=== PATIENT | female | born 1960 | race Caucasian/White ===

== ENCOUNTER 2017-05-31 08:27 | Emergency (ER) | payer SELFPAY ==
--- NOTE | 2017-05-31 11:20 | RAD ---
AP VIEW CHEST: Date: 05/31/17 HISTORY: Cough. FINDINGS: AP view of chest obtained. The lungs are well aerated. No evidence of active intrathoracic disease se en. No evidence of effusions, pneumonia, or pneumothorax seen. IMPRESSION: Unremarkable AP view of chest. POS: [facility]
== END 2017-05-31 09:52 | disposition home or self-care (01) ==
LOC: ERS 08:27
DX: J11.1 Influenza due to unidentified influenza virus with other respiratory manifestations (principal); J20.9 Acute bronchitis, unspecified; F17.210 Nicotine dependence, cigarettes, uncomplicated
CPT/HCPCS: 71010; 99406